=== PATIENT | female | born 2000 | race Caucasian/White ===

== ENCOUNTER 2024-03-01 11:01 | Day surgery (SDC) | payer OTHER, MEDICAID, SELFPAY ==
--- NOTE | 2024-03-01 | PATH_ITS ---
[facility] Accession Number: [id number] No. of containers..01 Tissue . 01 Material submitted: . product of conception - PRODUCTS OF CONCEPTION . 01 Diagnosis: PRODUCTS OF CONCEPTION: Chorionic villi present. No evidence of neoplasm. MRV 03/07/2024 1422 Local . 01 Electronically signed: . Marquis Aguila MD, PhD, Pathologist NPI- [id number] . 01 Gross description: . Received in formalin, labeled with two identifiers and products of conception, are multiple tsang spongy to membranous soft tissue fragments admixed with hemorrhagic material aggregating to 7.0 x 5.0 x 2.9 cm. Several fragments of tissue including three limbs are identified with a presumed foot length of 0.3 cm. Pot Puncher sections are submitted in cassettes A1-A2. ([id number]) /[facility] 03/02/2024 1545 Local . 01 Pathologist provided ICD-10: Z64.0 . 01 CPT . 723472 Specimen Comment: A courtesy copy of this report has been sent to [phone] Performed at: [address] [address], [place], [place] [id number] MD Jessee Powell MD Phone: [phone]
[2024-03-01] MEDS: LACTATED RINGERS 1,000 ML 42 ML IV ×2 (11:48→13:40)
[2024-03-01 11:49] VITALS: BP 100/63; PULSE 84; RESP 18; TEMP 36.8; O2SAT 100; BMI 25.7
--- NOTE | 2024-03-01 12:28 | P.HPOB_ITS ---
History of Present Illness History of Present Illness Reason for admission: other (Undesired ) Narrative: Mariel Norton is a 23 year old female 1 para 0 at 8 weeks' gestation, undesired . 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[employer]) current occupational exposures/hazards: No special payal needs: No travel history: recent ([place]) seatbelt use: always helmet use: No (counseled on this) water heater temp set < 120 deg: Yes working smoke detector in home: Yes fire extinguisher in home: Yes carbon monox detector in home: Yes firearms in home: Yes firearms unloaded and locked: Yes do you feel safe at home: Yes Smoking Status: Never smoker second hand exposure: Yes (s/o vapes) alcohol intake: former substance use type: marijuana (agrees not to use while /) during the past year weight has: remained stable well-balanced diet: about half the time daily servings fruits/ve-4 (mostly fruit, typically ~1 serving ) caffeine: Yes (aware of 200mg limit) Type(s) of exercise: aerobic and weight lifting frequency: 3-4 times per week Meds Home Medications and Allergies Home Medications Medication Instructions Recorded Confirmed Type No Known Home Medications 03/01/24 03/01/24 History Allergies Allergy/AdvReac Type Severity Reaction Status Date / Time No Known Drug Allergies Allergy Verified 03/01/24 12:08 Exam Vital Signs (past 8 hours): - 03/01/24 11:49 Temperature 98.3 F Pulse Rate 84 Respiratory Rate 18 Blood Pressure 100/63 Pulse Oximetry 100 Oxygen Delivery Method Room Air Oxygen Delivery Method Room Air Narrative Exam Narrative: HEENT: No thyromegaly, no anterior cervical or supraclavicular lymphadenopathy. Lungs:Clear to auscultation bilaterally, no wheezes. Cardiovascular: Regular rate and rhythm, no murmurs, rubs, or gallops. Abdomen: No scars. No hepatosplenomegaly. No masses palpable. External genitalia: Normal Vagina: Normal Cervix: Normal Bimanual exam: 8 Week size uterus. Mobile. Extremities: No edema Assessment & Plan Assessment & Plan narrative: Assessment: 23-year-old 1 para 0 with an undesired at 8 weeks' gestation Plan: Suction D&C The risks, benefits, and alternatives to the procedure were explained to the patient. The risks including bleeding, infection, and uterine perforation. She understands these risks and agrees to proceed. A full par Q was held and consent form was signed. Time Spent With Patient Time with patient: less than 30 minutes
--- NOTE | 2024-03-01 12:30 | PM.PREOP ---
Pre-operative Note Interval Note History & Physical reviewed/Exam performed by Physician: Yes Changes to H&P: No H&P completed within 30 days and has changed as indicated here:: 03/01/24
[2024-03-01] MEDS: ACETAMINOPHEN IV 1,000 MG/100 ML VIAL 400 MG IV (13:03)
[2024-03-01 13:33] VITALS: BP 86/50; PULSE 64; RESP 12; TEMP 36.6; O2SAT 95
[2024-03-01 13:38] VITALS: BP 92/54; PULSE 63; RESP 12; O2SAT 95
[2024-03-01 13:43] VITALS: BP 93/57; PULSE 62; RESP 12; O2SAT 96
[2024-03-01 13:49] VITALS: BP 102/69; PULSE 75; RESP 16; O2SAT 98
[2024-03-01 14:15] VITALS: BP 105/76; PULSE 82; RESP 16; O2SAT 100
--- NOTE | 2024-03-01 14:44 | PM.GYNOP.1 ---
Operative Date/Time/Diagnoses Date of procedure: 03/01/24 Time of procedure: 13:30 Pre-op diagnosis: Undesired at 8 weeks' gestation Post-op diagnosis: same Procedure & Clinicians Procedure: Procedures Operation Date: 03/01/24 12:15 Actual Procedure Side Surgeon santiago suction Dilation and Curettage Anusha Dalton MD Indications: 23-year-old 1 para 0 at 8 weeks' gestation with an undesired Surgeon: Anusha Dalton Anesthesia Type: General (LMA) Operative Notes Findings: 8 week size anteverted uterus Closure Type: not applicable Specimen(s): products of conception Applied: catheter (In/out) Estimated blood loss (mL): 50 Blood products transfused: none Procedure in detail: After informed consent was obtained, the patient was taken to the operating room where she was placed in the dorsal supine position. After adequate LMA general anesthesia was achieved, she was placed in the dorsal lithotomy position, and prepped and draped in the usual sterile fashion. A time-out was performed. A bimanual exam was performed which revealed an 8 week size anteverted uterus. A bivalve speculum was placed into the vagina and the anterior lip of the cervix was grasped with a single-tooth tenaculum. The cervical os was sequentially dilated until the #8 curved plastic curette could pass easily into the endometrial cavity. Several passes with suction revealed fluid and then tissue. Several more passes revealed tissue and then blood. On the last pass there was blood only. The instruments were removed from the uterus. The single-tooth tenaculum was removed from the anterior lip of the cervix. The bivalve speculum was removed from the vagina. There was minimal amount of bleeding from the cervical os. Sponge, lap, and instrument counts were correct x2. The patient tolerated the procedure well, and was taken to PACU in stable condition. Complications: none Post-operative Condition: stable Disposition: PACU Plan for aftercare: Home after recovery
== END 2024-03-01 14:30 | disposition home or self-care (01) ==
PROVIDERS: Referring Provider Obstetrics & Gynecology; Visit Provider Obstetrics & Gynecology
PROC: (CPT 58120; principal; 2024-03-01 12:15)
DX: Z33.2 Encounter for elective termination of pregnancy (principal); Z3A.08 8 weeks gestation of pregnancy
CPT/HCPCS: 59841; J0136; J1100; J1885; J2250; J2405; J2704; J3010

== ENCOUNTER → 2025-02-20 09:02 | Outpatient (CLI) | payer OTHER, SELFPAY ==
[2025-02-20 10:32] LABS: Add Manual Diff / Slide Review NO; Basophils Absolute Auto 0 /uL (0-100); Basophils Percent Auto 0.3 % (0-2); Eosinophils Absolute Auto 100 /uL (0-450); Eosinophils Percent Auto 1.2 % (2-4); Hematocrit 38.2 % (36-46); Hemoglobin 13.4 g/dL (12.0-16.0); Lymphocytes Absolute Auto 1900 /uL (1100-4500); Mean Corpuscular Hemoglobin 31.9 PG (26-34); Mean Corpuscular Volume 91.1 fL (80-100); Monocytes Absolute Auto 500 /uL (0-900); Neutrophils Absolute Auto 5700 /uL (1500-7000); Neutrophils Percent Auto 69.5 % (50-75); Platelet Count 178 X10^3/uL (150-400); Red Blood Cell Count 4.19 X10^6/uL (4.0-5.2); Red Cell Distribution Width 13.7 % (11.6-14.8); White Blood Cell Count 8.2 X10^3/uL (4.5-11.0)
[2025-02-20 10:48] LABS: Natera Collection Specimen Collected
[2025-02-20 15:13] LABS: Hepatitis B Surface Antigen NEGATIVE s/c (NEGATIVE); Rubella Antibody IgG 16.9 IU/mL (>15)
[2025-02-20 15:22] LABS: HIV 1 & 2 Ab/Ag 4th Gen Combo NEGATIVE (NEGATIVE); Hep C Virus Ab w/Reflex Quant NEGATIVE s/c (NEGATIVE)
[2025-02-21 01:07] LABS: Varicella IgG Antibody Reactive (Non Reactive)
[2025-02-21 05:41] LABS: RPR Screen Non Reactive (Non Reactive)
== END ==
PROVIDERS: Referring Provider Obstetrics & Gynecology; Visit Provider Obstetrics & Gynecology
DX: Z34.81 Encounter for supervision of other normal pregnancy, first trimester (principal); Z3A.10 10 weeks gestation of pregnancy
CPT/HCPCS: 36415; 80055; 86787; 86803; 86850; 86900; 86901; 87389

== ENCOUNTER → 2025-04-25 07:54 | Outpatient (CLI) | payer OTHER, SELFPAY ==
--- NOTE | 2025-04-25 07:55 | DI.US.S_ITS ---
PROCEDURE: US OB >= 14 WEEKS FETUS INDICATIONS: ANATOMY OUTSIDE/PRIOR DATING DATA: Last menstrual period (LMP): 12/07/2024 LMP-based estimated date of delivery (PIERO): 09/13/2025 The calculations are made using the working PIERO of 09/13/2025 TECHNIQUE: Real-time scanning was performed of the fetus, with image documentation and biometric measurements. Endovaginal scanning: Not performed COMPARISON: None. FINDINGS: General: A single living intrauterine gestation is present. Presentation: Variable. Placenta: Placental position is posterior, without previa. Amniotic fluid index: 14.3 cm, normal range is 5-24 cm. Single deepest vertical pocket is 4.2 cm. heart rate: 144 beats per minute. Maternal cervical canal: 4.0 cm long. Normal lower limit is 2.5 cm. biometrics: Biparietal diameter: 4.6 cm, 19 weeks, 5 days. Head circumference: 16.9 cm, 19 weeks, 4 days. Abdominal circumference: 13.8 cm, 19 weeks, 2 days. Femur length: 3.0 cm, 19 weeks, 2 days. Clinically estimated gestational age: 19 weeks, 6 days. Composite gestational age from present scan: 19 weeks, 3 days. Estimated weight and percentile: 286 g, 19%. Anatomic survey: Neuro: Ventricles are non-dilated at less than 10 mm. Cisterna magna is normal at 3-11 mm. Cerebellum is normal in size and morphology. Nuchal skin fold: Normal at less than 6 mm between 14-21 weeks gestational age. Face: Nose and lips, facial profile are normal. Spine: No evidence for spina bifida. Heart: 4-chambered heart is present, with normal ventricular outflow tracts. Diaphragm: Diaphragm is intact. Stomach: Left-sided stomach is present. Kidneys: No hydronephrosis. Normal is less than 5 mm in 2nd trimester, less than 7 mm in 3rd trimester. Cord: 3-vessel cord has orthotopic insertion. Bladder: Normal in size. Extremities: All 4 extremities identified. IMPRESSION: 1. Single live intrauterine gestation with fetus in variable presentation. heart rate is 144 beats per minute. Normal CLEMENT at 14.3 cm. Estimated weight is at 19%. 2. Normal anatomic survey. We strive to produce accurate, complete, and clear reports of imaging services. To assist us in improving patient care, this report was composed using standard report templates and voice recognition software. Therefore, it may contain abnormal punctuation, insertions and/or omissions. Occasional wrong-word or sound-alike substitutions may occur. Though we review the report and make efforts to correct it, we do recommend that the report be read carefully in proper context to recognize any text inaccuracies. Dictated by: Gio Lamar M.D. on 04/26/2025 at 12:37 Approved by: Gio Lamar M.D. on 04/26/2025 at 12:39
== END ==
LOC: US 07:55
PROVIDERS: Referring Provider Obstetrics & Gynecology; Visit Provider Obstetrics & Gynecology
DX: Z34.92 Encounter for supervision of normal pregnancy, unspecified, second trimester (principal); Z3A.20 20 weeks gestation of pregnancy
CPT/HCPCS: 76811

== ENCOUNTER → 2025-06-21 09:58 | Outpatient (CLI) | payer OTHER, SELFPAY ==
[2025-06-21 11:51] LABS: GTT (PREG) 1 Hour PP 50gm Dose 84 mg/dL (76-139)
== END ==
PROVIDERS: Referring Provider Obstetrics & Gynecology; Visit Provider Obstetrics & Gynecology
DX: Z34.80 Encounter for supervision of other normal pregnancy, unspecified trimester (principal); Z3A.26 26 weeks gestation of pregnancy
CPT/HCPCS: 36415; 82950

== ENCOUNTER → 2025-07-11 08:05 | Outpatient (CLI) | payer OTHER, SELFPAY ==
--- NOTE | 2025-07-11 08:07 | DI.US.S_ITS ---
PROCEDURE: US OB LIMITED INDICATIONS: EFW OUTSIDE/PRIOR DATING DATA: Last menstrual period (LMP): 12/07/2024. LMP-based estimated date of delivery (PIERO): 09/13/2025. First dating scan (date and location): 02/20/2025. Estimated date of delivery (PIERO) from first dating scan: 09/15/2025. The calculations are made using the working PIERO of 09/13/2025. TECHNIQUE: Real-time scanning was performed of the fetus, with image documentation and biometric measurements. Endovaginal scanning: Not performed COMPARISON: [facility]en[facility], , US OB <= 14 WEEKS FETUS, 02/20/2025, 9:01. FINDINGS: General: A single living intrauterine gestation is present. Presentation: Vertex. Placenta: Placental position is posterior and right , without previa. Amniotic fluid index: 10.7 cm, normal range is 5-24 cm. Single deepest vertical pocket is 4.6 cm. heart rate: 150 beats per minute. Maternal cervical canal: 3.5 cm long. Normal lower limit is 2.5 cm. biometrics: Biparietal diameter: 7.9 cm, 31 weeks 6 days Head circumference: 28.8 cm, 31 weeks 5 days Abdominal circumference: 27.0 cm, 31 weeks 0 days Femur length: 6.1 cm, 31 weeks 5 days Clinically estimated gestational age: 30 weeks 6 days Composite gestational age from present scan: 31 weeks 4 days Estimated weight and percentile: 1757 g, 56 percentile Other: Not applicable. IMPRESSION: Living 3rd trimester intrauterine with no sonographic evidence of complications. Estimated weight is 56 percentile. We strive to produce accurate, complete, and clear reports of imaging services. To assist us in improving patient care, this report was composed using standard report templates and voice recognition software. Therefore, it may contain abnormal punctuation, insertions and/or omissions. Occasional wrong-word or sound-alike substitutions may occur. Though we review the report and make efforts to correct it, we do recommend that the report be read carefully in proper context to recognize any text inaccuracies. Dictated by: Ezra Vides M.D. on 07/11/2025 at 10:40 Approved by: Ezra Vides M.D. on 07/11/2025 at 10:44
== END ==
PROVIDERS: PCP Obstetrics & Gynecology; Referring Provider Obstetrics & Gynecology; Visit Provider Obstetrics & Gynecology
DX: Z34.83 Encounter for supervision of other normal pregnancy, third trimester (principal); Z3A.30 30 weeks gestation of pregnancy
CPT/HCPCS: 76815

== ENCOUNTER → 2025-08-20 11:33 | Outpatient (CLI) | payer OTHER, SELFPAY ==
[2025-08-21 14:09] LABS: Strep Grp B PCR NEG for Grp B Strep
== END ==
PROVIDERS: PCP Obstetrics & Gynecology; Visit Provider Obstetrics & Gynecology
DX: Z34.83 Encounter for supervision of other normal pregnancy, third trimester (principal)
CPT/HCPCS: 87653

== ENCOUNTER 2025-08-25 08:05 | Outpatient (CLI) | payer OTHER, SELFPAY ==
--- NOTE | 2025-08-25 08:39 | P.TNLD_ITS ---
Visit Information Visit Information Date of evaluation: 08/25/25 On-call OB Provider: Mine Jaeger Reason for Evaluation: Yes rule out labor PFSH Surgical History (Updated 02/12/25 @ 10:11 by Zohra Whitaker, RN) H/O dilation and curettage (~2023) History of tonsillectomy [place] teeth extracted Family History (Updated 02/12/25 @ 10:28 by Zohra Whitaker RN) Mother Multiple sclerosis Grandfather Cancer Sister Bipolar disorder Schizophrenia Social History marital status: unmarried,living together number of children: 0 household members: significant other lives independently: Yes caregiver/support person: No housing: house pets and animals: Yes (2 dogs) education level: vocational occupational status: employed current occupational exposures/hazards: No special payal needs: No travel history: over 6 months ago seatbelt use: always helmet use: No (counseled on this) water heater temp set < 120 deg: Yes working smoke detector in home: Yes fire extinguisher in home: Yes carbon monox detector in home: Yes firearms in home: Yes firearms unloaded and locked: Yes do you feel safe at home: Yes second hand exposure: No alcohol intake: former substance use type: marijuana during the past year weight has: remained stable well-balanced diet: about half the time daily servings fruits/ve-4 caffeine: Yes (aware of 200mg limit) Type(s) of exercise: aerobic and weight lifting frequency: 3-4 times per week Evaluation Evaluation Baseline heart rate: 140 Variability: Moderate (6-25) monitor accelerations: Present Monitor Decelerations: Absent Contraction Frequency (minutes): 0 Category of Tracing: Reactive Cervical dilation (cm): 0 Cervical effacement (%): 0 station: -3 Diagnosis, Plan/Disposition Final Diagnosis (1) False labor after 37 completed weeks of gestation: Status: Acute Plan/Disposition OB Disposition: home
== END 2025-08-25 08:49 | disposition home or self-care (01) ==
LOC: OB 10:35
PROVIDERS: PCP Obstetrics & Gynecology; Referring Provider Obstetrics & Gynecology; Visit Provider Obstetrics & Gynecology
DX: O47.1 False labor at or after 37 completed weeks of gestation (principal); Z3A.37 37 weeks gestation of pregnancy
CPT/HCPCS: 59025; G0378; G0379

== ENCOUNTER 2025-09-14 05:23 | Inpatient (IN) | payer OTHER, SELFPAY ==
[2025-09-14 06:50] VITALS: BP 118/73
[2025-09-14 07:09] LABS: Add Manual Diff / Slide Review NO; Hematocrit 38.9 % (36-46); Hemoglobin 13.5 g/dL (12.0-16.0); Lymphocytes Absolute Auto 2500 /uL (1100-4500); Mean Corpuscular HGB Conc 34.7 % (30-36); Mean Corpuscular Hemoglobin 32.0 PG (26-34); Mean Corpuscular Volume 92.2 fL (80-100); Platelet Count 201 X10^3/uL (150-400)
--- NOTE | 2025-09-14 13:50 | PM.OBHP.IH.1 ---
OB HPI Date/Time Date of admission: 09/14/25 Date Patient Seen: 09/14/25 Time Patient Seen: 13:50 History of Present Condition Chief complaint: Marybel W[place]ster PIERO Calculator Estimated Delivery Date Method Current WG Current Estimate 09/13/25 LMP (Uncertain) 40w 1d Other Estimates 09/16/25 Ultrasound #1 39w 5d 09/15/25 Ultrasound #2 39w 6d Estimated Gestational Age (weeks): 40w1d : 2 Para: 0 Narrative: Patient is a 25yo @ 40w1d presented this am with concern of gush of fluid when she woke up and concern for ROM. She was ruled out for ROM but was planning elective IOL today so was kept to proceed with planned induction. she denied any contractions/VB and reports good movement. care: good care Dating criteria OB: LMP confirmed by 1st trimester US Ultrasounds: normal mid trimester US Obstetrical complications: none Medical complications OB: none Preadmission Labs Last OB Lab Results: Blood Type A Positive Today, 06:30 Antibody Screen Negative Today, 06:30 Hct, (36-46) 38.9 % Today, 06:30 Hgb, (12.0-16.0) 13.5 g/dL Today, 06:30 Hep Bs Antigen, (NEGATIVE) Negative s/c 02/20/25, 09:48 Hepatitis C Antibody, (NEGATIVE) Negative s/c 02/20/25, 09:48 Rubella Antibody, (>15) 16.9 IU/mL 02/20/25, 09:48 VZV IgG Antibody, (Non Reactive) Reactive 02/20/25, 09:48 Glucose 1 Hr 50 gm, (76-139) 84 mg/dL 06/21/25, 11:20 Group B Strep (PCR) Neg for grp b strep 08/20/25, 13:00 -: Chlamydia screen: negative and Gonorrhea screen: negative Genetic Screens: Cell-free DNA: Normal (low risk female) Prior (ies) Past Pregnancies Del. Date GA/Weeks Labor Lgth Wt Sex Route Outcome Anesthesia Place Delv Breastfeed Preg Comp Name 03/01/23 8 elective [facility] Hx # Term Pregnancies: 0 Evaluation Evaluation Baseline heart rate: 145 Variability: Moderate (6-25) monitor accelerations: Present Monitor Decelerations: Absent Contraction Frequency (minutes): 4 Uterine Contraction Intensity: Mild Category of Tracing: Reactive Status: Category l Dilation (cm): 0.5 Effacement (%): 0 Dilation: Closed Effacement: 0-30% station: -3 Position of cervix: posterior Consistency: medium Solis score: 1 Comments: BSUS confirmed vertex presentation [facility] Surgical History (Updated 02/12/25 @ 10:11 by Zohra Whitaker, RN) H/O dilation and curettage (~2023) History of tonsillectomy [place] teeth extracted Family History (Updated 02/12/25 @ 10:28 by Zohra Whitaker, ALIZE) Mother Multiple sclerosis Grandfather Cancer Sister Bipolar disorder Schizophrenia Social History marital status: unmarried,living together number of children: 0 household members: significant other lives independently: Yes caregiver/support person: No housing: house pets and animals: Yes (2 dogs) education level: vocational occupational status: employed current occupational exposures/hazards: No special payal needs: No travel history: over 6 months ago seatbelt use: always helmet use: No (counseled on this) water heater temp set < 120 deg: Yes working smoke detector in home: Yes fire extinguisher in home: Yes carbon monox detector in home: Yes firearms in home: Yes firearms unloaded and locked: Yes do you feel safe at home: Yes second hand exposure: No alcohol intake: former substance use type: marijuana during the past year weight has: remained stable well-balanced diet: about half the time daily servings fruits/ve-4 caffeine: Yes (aware of 200mg limit) Type(s) of exercise: aerobic and weight lifting frequency: 3-4 times per week Meds Home Medications and Allergies Home Medications ?Medication ?Instructions ?Recorded ?Confirmed ?Type [id number] 400 mcg-om3 35 mg-dha 25 tab PO 02/12/25 09/01/25 History mg-epa 5 mg-fish oil chewable tablet ondansetron 4 mg disintegrating 4 mg PO Q6H #20 tabs 03/10/25 09/01/25 Rx tablet metoclopramide HCl 10 mg tablet 10 mg PO Q6H PRN nausea and 03/21/25 09/01/25 Rx (Reglan) vomiting #20 tabs breast pump #1 ea 07/11/25 09/01/25 Rx Allergies Allergy/AdvReac Type Severity Reaction Status Date / Time No Known Drug Allergies Allergy Verified 09/01/25 14:07 OB Exam Narrative Exam Narrative: Vital signs appropriate General- AAO x 3, NAD abdomen- gravid EFW by juancarlos- 7.5lbs cervix- 0.5//hi per RN LE- 1+ edema Objective Labs 09/14/25 06:30 Labs: Laboratory Results - last 24 hr 09/14/25 06:30 WBC 11.6 H RBC 4.23 Hgb 13.5 Hct 38.9 MCV 92.2 MCH 32.0 MCHC 34.7 RDW 13.3 Plt Count 201 Neut % (Auto) 69.1 Lymph % (Auto) 21.8 L Thomas % (Auto) 6.1 Eos % (Auto) 2.6 Baso % (Auto) 0.4 Neut # (Auto) 8000 H Lymph # (Auto) 2500 Thomas # (Auto) 700 Eos # (Auto) 300 Baso # (Auto) 100 Blood Type A Positive Antibody Screen Negative Assessment and Plan Assessment and Plan Assessment and Plan narrative: Patient is a 25yo G2 @ 40w1d presents to L&D for scheduled induction of labor at term 1. Elective induction of labor at term- admit to L&D - CEFM, IVF , regular diet - cervix- 0.5//hi, unfavorable - start misoprostol 50mcg PO q 4 hours x 6 doses - EFW by juancarlos- 7.5lbs - BSUS- vertex confirmed by RN - pain analgesia per request - FHTs category 1- reassuring - GBS negative - anticipate Time-Based Coding :: [TOTAL MINUTES] spent with patient and on the chart (including review of chart, obtaining history, exam, reviewing outside data, placing orders, documenting exam and treatment plan, and counseling patient) on [DATE].
[2025-09-14] MEDS: FAMOTIDINE 20 MG TABLET PO (18:31)
--- NOTE | 2025-09-15 00:06 | PM.AN.REGBLK ---
[facility] <Salile Choudhary CRNA - Last Filed: 09/16/25 09:38> Pre-procedure PMH/ROS narrative: NO SIGNIFICANT PLAST MEDICAL HISTORY PSH/Anesthesia history narrative: N/A ASA Class: II Labs: Hct 38.9 % (36-46) 09/14/25 06:30 Plt Count 201 X10^3/uL (150-400) 09/14/25 06:30 Medications: Current Medications Generic Name Dose Route Start Last Admin Trade Name Freq PRN Reason Stop Dose Admin Calcium Carbonate 1,000 mg 09/14/25 06:53 Calcium Carbonate 500 Mg Tab PO Q2HR PRN Dyspepsia Carboprost Tromethamine 250 mcg 09/14/25 06:53 Carboprost 250 Mcg/Ml Ampul IM Q90M PRN Bleeding Famotidine 20 mg 09/14/25 18:12 09/14/25 18:31 Famotidine 20 Mg Tablet PO 20 mg BID PRN Administration acid reflux Fentanyl 50 mcg 09/14/25 20:00 Fentanyl 100 Mcg/2 Ml Inj IV Q1H PRN Pain, Severe (7-10) Oxytocin/Lactated Ringer's 30 unit in 500 mls @ 200 mls/hr 09/14/25 06:53 Oxytocin Premix IV CONT PRN Bleeding Protocol Tranexamic Acid 1,000 mg/ 100 mls @ 600 mls/hr 09/14/25 06:53 Sodium Chloride IV NOW PRN Bleeding Lidocaine HCl 20 ml 09/14/25 06:53 Lidocaine 1% 20 Ml INJ INTRA-OP PRN Post Delivery Methylergonovine Maleate 0.2 mg 09/14/25 06:53 Methylergonovine 0.2 Mg Tablet PO Q6HR PRN Heavy Bleeding Methylergonovine Maleate 0.2 mg 09/14/25 06:53 Methylergonovine 0.2 Mg/Ml Vial IM NOW PRN Bleeding Mineral Oil 30 ml 09/14/25 06:53 Mineral Oil 30 Ml Udc TOP PRN PRN Version Misoprostol 800 mcg 09/14/25 06:53 Misoprostol 200 Mcg Tablet WV NOW PRN Bleeding Misoprostol 400 mcg 09/14/25 06:53 Misoprostol 200 Mcg Tablet SL NOW PRN Bleeding Misoprostol 50 mcg 09/14/25 07:00 09/14/25 15:46 Misoprostol 25 Mcg Tablet PO 09/15/25 03:01 50 mcg Q4H FELICIA Administration Naloxone HCl 0.2 mg 09/14/25 06:53 Naloxone 0.4 Mg/Ml Vial IV Q2MIN PRN Opiate Reversal Ondansetron HCl 4 mg 09/14/25 06:53 Ondansetron 4 Mg/2 Ml Inj IV Q4HR PRN Nausea And Vomiting Oxytocin 10 unit 09/14/25 06:53 Oxytocin 10 Unit/Ml Vial IM NOW PRN Bleeding Allergies: Allergies Allergy/AdvReac Type Severity Reaction Status Date / Time No Known Drug Allergies Allergy Verified 09/01/25 14:07 --: pt h and p obtained. rba discussed. draped and prep under sterile technique. v/s/s. l3 l4 interspace identified. lido 1% 3 cc skin wheel. 18 g tuohy through until OTIS obtained. 27 g pencil point SAB needle + csf, - heme denies parethesias. SAB needle removed. epidural space injected with NS. catheter inserted. secured in sterile fashion. Procedure Insertion date: 09/14/25 Insertion time: 23:31 Prep/Local: betadine x3 (CHLORAPREP) and 1% lidocaine (3) Interspace: L3 L4 Patient position: sitting Needle: 17 gauge Tuohy (18) Loss of resistance with: saline OTIS at (cm): 6 Catheter placed at SKIN (cm): 12 Sensory level: T8 Insertion: No CSF, No Blood, No Paresthesia with insertion, No Paresthesia with injection and No Test dose reaction Initial Medications TEST DOSE time: 23:32 TEST DOSE: 1.5% lidocaine with epinephrine 1:200k (mL): 3 BOLUS DOSE time: 23:39 BOLUS DOSE (mL): 5 BOLUS DOSE med: other (INFUSATE) Infusion INFUSION: 0.125% bupivacaine and with fentanyl 2 mcg/mL Initial rate (mL/hr): 10 Post-procedure Anesthesia date START: 09/14/25 Anesthesia time START: 23:21 <Vidhya Carvajal CRNA - Last Filed: 09/15/25 15:49> Post-procedure Anesthesia date END: 09/15/25 Anesthesia time END: 13:30 Post-procedure Anesthesia Assessment: Yes CV function: HR/BP stable, Yes Resp function: RR/sat/airway adequate, Yes Post-op hydration adequate, Yes Pain control adequate, Yes Nausea & vomiting absent, Yes Temperature > 36 C, Yes Mental status appropriate and No Anesthesia complications
[2025-09-15] MEDS: ONDANSETRON 4 MG/2 ML INJ IV ×3 (00:48→15:51)
[2025-09-15] MEDS: OXYTOCIN PREMIX 30 UNIT/500 ML PLAST..BAG IV (03:23)
[2025-09-15] MEDS: FENT 2MCG/ML BUPIV 0.125% EPI 200 MCG/100 ML PLAST..BAG 10 MCG EPIDURAL (07:10)
[2025-09-15] MEDS: LACTATED RINGERS 1,000 ML 999 ML IV (07:11)
--- NOTE | 2025-09-15 09:07 | PM.OBPNLAB ---
Date/Time Date Patient Seen: 09/15/25 Time Patient Seen: 09:07 Pain Control Pain control: epidural Comments: Patient resting comfortably with her epidural. Pelvic Exam Dilation (cm): 5 Effacement (%): 90 station: -3 Amniotic membrane status: Ruptured Comments: AROM performed- clear fluid, moderate Contractions Contractions on admission: regular Monitor mode: External Pitocin rate (mU/min): 16 Contraction frequency (min): 2 Contraction pattern: Regular Contraction intensity: Strong/Firm Status status: Category l Heart Rate Baseline: 125 Monitor Accelerations: Present Monitor Decelerations: Absent and Early Monitor Variability: Moderate Comments: category 1 tracing Assessment and Plan Assessment: induction ongoing Plan: continuous present management
--- OUTSIDE RECORDS SUMMARY | 2025-09-15 13:48 | XMS_ITS | Clinical Summary ---
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 6 tablet 12/28/19 Active Additional Information Patient not taking.Reported on 05/18/2025 ondansetron ODT (ZOFRAN-ODT) 4 mg disintegrating tablet Take 4 mg every 8 hours for nausea/vomiting 10 tablet 10/27/19 23 Active Additional Information Patient not taking.Reported on 05/18/2025 Active Problems Estimated Date of Delivery Comme nts Yes 09/13/2025 Based on last me nstrual period of 12/07/2024 (Approximate) No known active problems Immunizations Immunization Administration Dates Next Due DTaP 10/04/2007, 3,04/16/2002,2001,2001 H1N1 All Forms 07/25/2009 Hep A, Ped/Adol, 2 Dose (Hav tish, Vaqta) 01/03/2011 Hep B Ped/Adol-PF (Engerix,Recombivax) 04/16/2002,2001,2001 HiB 04/02/2003,2001 Hib (HbOC) 2001 Hib (PRP-D) 04/02/2003,04/16/2002,2001 IPV (IPOL) 10/04/2007,04/16/2002,2001 MMR (M-M-R II) 10/04/2007,04/02/2003 MMRV (ProQuad) 10/04/2007 Pneumococcal Conjugate PCV13 ([id number]) 04/16/2002,2001,2001 Pneumococcal Conjugate PCV7 2001 Rubella/mumps 10/04/2007 Tdap (Boostrix,Adacel) 02/21/2021,09/26/2017 Varicella (Varivax) 01/03/2011,10/04/2007 Social History Tobacco Use Types Packs/Day Years Used Date Smoking Tobacco: Never Smokeless Tobacco: Never Tobacco Cessation:Counseling Given: Yes Alcohol Use Standard Drinks/Week Comments Never 0 (1 standard drink = 0.6 oz pur e alcohol) Estimated Date of Delivery Comme nts Yes 09/13/2025 Based on last me nstrual period of 12/07/2024 (Approximate) Sex and Gender Information Value Date Recorded Sex Assigned at Not on file Legal Sex Female 7:40 AM PDT Gender Identity Not on file Sexual Orientation Not on file Last Filed Vital Signs Vital Sign Reading Time Taken Comments Blood Pressure 109/75 05/18/2025 2:41 PM PDT Pulse 78 05/18/2025 2:41 PM PDT Temperature 37.1 C (98.8 F) 05/18/2025 2:41 PM PDT Respiratory Rate 20 05/18/2025 2:41 PM PDT Oxygen Saturation 96% 05/18/2025 2:41 PM PDT Inhaled Oxygen Concentration - - Weight 92 kg (202 lb 12.8 oz) 05/18/2025 2:41 PM PDT Height 167.6 cm (5' 6) 05/18/2025 2:41 PM PDT Body Mass Index 32.73 05/18/2025 2:41 PM PDT Plan of Treatment Health Maintenance Due Date Last Done Comments Hepatitis A Vaccines (2 of 2 - 2-dose series) 07/05/2011 01/03/2011 Depression Screening (PHQ-2) 2013 Chlamydia Screening 2015 HPV Vaccines (1 - 3-dose series) 2016 Cervical Cancer Screening 2022 COVID-19 Vaccine ( season) 2025 Influenza Vaccine (#1) 2025 07/25/2009 DTaP,Tdap,and Td Vaccines (8 - Td or Tdap) 02/21/2031 02/21/2021, 09/26/2017, 10/04/2007, Additional history exists HM Pneumococcal Combined Age 0-49 Aged Out 04/16/2002, 2001, 2001, Additional history exists No longer eligible based on patient's age to complete this topic Hepatitis B Vaccines Completed 04/16/2002, 2001, 2001 IPV Vaccines Completed 10/04/2007, 03/26, 2001 MMR Vaccines Completed 10/04/2007, 09/25, 04/02/2003 Varicella Vaccines Completed 01/03/2011, 0 10/04/2007, 10/04/2007 RSV Patients Over 60 years OR qualifying ( Patients) (No Doses Required) Completed Insurance [employer] CHO[employer] PPO 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
--- NOTE | 2025-09-15 13:52 | P.PCNOB_ITS ---
Labor & Delivery Delivery date: 09/15/25 Delivery Time: 01:30 Intrapartal Events: None Cervical ripening method: per misoprostal protocol Delivery monitor: external FHT Route of delivery: L&D Laceration Description: Perineal - 1st Degree Estimated blood loss (mL): 200 Anesthesia Type: Epidural Narrative: The patient progressed to C/C/+2 with pitocin augmentation and epidural anesthesia. After excellent maternal pushing efforts, the delivered in OA position and restituted JOHN. The anterior shoulder delivered with gentle downward pressure. The posterior shoulder and rest of body delivered with ease. The cord was doubly clamped and cut after a 2 min delay with the handed off to maternal abdomen. The placenta delivered spontaneously and was intact with a 3-vessel cord. The fundus was noted to be firm with bimanual massage and pitocin. Inspection of the cervix, vagina, and perineum was notable for a first degree laceration. All tissues noted to be hemostatic so no repair was performed. All sponges were removed from the vagina. The patient tolerated delivery well and r emained in the labor room with the infant at the bedside. Plan for aftercare: Routine care
[2025-09-15] MEDS: KETOROLAC 30 MG/ML VIAL IV (15:50)
[2025-09-15] MEDS: ACETAMINOPHEN 325 MG TABLET 650 MG PO ×2 (15:51→21:53)
[2025-09-15] MEDS: DERMOPLAST SPRAY 20% 60 ML 1 SPRAY TOP (15:55)
[2025-09-15] MEDS: IBUPROFEN 600 MG TABLET PO (21:53)
[2025-09-15] MEDS: DOCUSATE 100 MG CAPSULE PO (21:54)
[2025-09-16] MEDS: ACETAMINOPHEN 325 MG TABLET 650 MG PO ×2 (03:40→10:24)
[2025-09-16] MEDS: IBUPROFEN 600 MG TABLET PO ×2 (03:40→10:23)
[2025-09-16] MEDS: DOCUSATE 100 MG CAPSULE PO (10:28)
--- NOTE | 2025-09-16 12:12 | PM.OBDS.1 ---
Discharge Providers Provider Date of admission: 09/14/25 05:23 Discharge Date: 09/16/25 Primary care physician: Dee Morales DO Consults: 09/14/25 06:53 Consult to Anesthesiology Urgent Comment: Consulting Provider: Anesthesiologist Reason for consultation: Epidural 09/15/25 15:06 Consult to Package Car Driver Routine Comment: Discharge provider: Lacie Guerrero MD Summary Hospital Course Date Patient Seen: 09/16/25 Time Patient Seen: 07:30 Hospital Course: This is a 25 yo G2 now P1 who presented for eIOL. She underwent IOL with misoprostol, SROM and vaginal delivery without complications. GBS negative. She recovered well in the period. She was with some difficulty and plans to see outpatient. She is ambulating. Bleeding minimal. Pain moderate but controlled with PO meds. Peripartum Data Infant Delivery Method: Natural Vaginal Laceration Description: Perineal - 1st Degree complications: none Status at Discharge Cognitive/behavioral status at discharge: oriented Functional status at discharge: independent ambulation Overall status at discharge: patient is back to baseline Time Spent with Patient Time attestation: Total time spent providing and/or coordinating discharge services: 30 minutes Objective Labs 09/14/25 06:30 Exam Narrative Exam Narrative: NAD, resting comfortably. Vagina swollen, minimal bleeding. Discharge Plan Discharge Plan Patient Disposition: Home Discharge orders & Medications Prescriptions: New acetaminophen 325 mg Tablet 650 mg PO Q6H PRN (Reason: Pain, Mild (1-3)) Qty: 60 0RF docusate sodium 100 mg Capsule 100 mg PO BID Qty: 60 0RF ibuprofen 600 mg Tablet 600 mg PO Q6H Qty: 60 0RF Continued ondansetron 4 mg tablet,disintegrating 4 mg PO Q6H Qty: 20 3RF metoclopramide HCl [Reglan] 10 mg tablet 10 mg PO Q6H PRN (Reason: nausea and vomiting) Qty: 20 1RF [id number] oil 400 mcg-35 mg -25 mg-5 mg tablet,chewable PO (DME) breast pump Device See Rx Instructions .Route Qty: 1 0RF Rx Instructions: As directed dual electric Follow up/Referrals: Dee Morales DO [Primary Care Provider, Gynecology] Referral Note: Please follow up on MondayOctober 28 @ 2:00pm for your 6 week appt. Diet/Activity/Treatments Diet: Diet as Tolerated Skin/Wound/Dressing Care Report to your healthcare provider any signs of infection, such as:: chills, fever, night sweats, increased pain, unusual drainage and unusual redness Visit Report/Discharge Packet Instructions: DI for Labor and Delivery, Vaginal Stand Alone Forms: [employer], Patient Portal/API, Stroke Signs & Symptoms, Influenza Vaccine Info, Notice of Privacy Practices, Inpatient vs Outpatient, Pneumococcal Vaccine Info, Pt. Rights & Responsibilities Discharge Data Primary Care Provider: Dee Morales
== END 2025-09-16 15:00 | disposition home or self-care (01) | DRG 807 ==
PROVIDERS: Admitting Provider Obstetrics & Gynecology; PCP Obstetrics & Gynecology; Referring Provider Obstetrics & Gynecology; Visit Provider Obstetrics & Gynecology
DX: O70.0 First degree perineal laceration during delivery (principal); Z37.0 Single live birth; Z67.10 Type A blood, Rh positive; Z3A.40 40 weeks gestation of pregnancy
CPT/HCPCS: 59050; 59200; 85025; 86850; 86900; 86901; A9270; G0379; J1885; J2405; J2590; J7120